=== PATIENT | female | born 1940 | race African-American/Black ===

== ENCOUNTER 2017-04-23 21:05 | Inpatient (IN) | payer MEDICARE ==
[2017-04-23] MEDS ORDERED: Rocuronium Bromide 50 MG/5 ML VIAL ONE (21:07)
[2017-04-23 21:26] LABS: Actual Bicarbonate (HCO3a) 19.6 mEq/L (22-26); Base Excess (BEa) -4.1 mEq/L (0 (+/-) 2.5); CO2 Tension 31.9 mmHg (35.0-45.0); pH, Arterial 7.41 (7.35-7.45)
[2017-04-23 21:27] LABS: ALV-art Gradient 95.685 (0-20); Analyzer IN Cardio ER; Calcium, Ionized 1.1 mmol/L (1.12-1.30); Hematocrit-ABG 41.9 % (36.0-47.0); Hemoglobin (Hb) 12.9 g/dL (12.0-16.0); Puncture Site RRA
[2017-04-23 22:04] LABS: Base Excess-Venous -4.3 mmol/L (-30.0-30.0); Bicarbonate (HCO3v) 19.6 mmol/L (1.0-85.0); CO2 Tension (PvCO2) 32.2 mmHg (41.0-51.0); Calcium, Ionized 0.92 mmol/L (1.12-1.32); O2 Tension (PvO2) 33.5 mmHg (35.0-45.0); Potassium 3.5 mmol/L (3.4-4.7); T. Carbon Dioxide 20.6 mmol/L (1.0-85.0); pH (Venous) 7.393 (7.35-7.45)
[2017-04-23 22:18] LABS: Hemoglobin 13.2 g/dL (12.0-16.0); Mean Corpuscular Hemoglobin 32.7 pg (27.0-31.0); Mean Corpuscular Volume 99.1 fl (81.0-99.0); Red Blood Cell (RBC) Count 4.05 mill/uL (4.20-5.40)
[2017-04-23 22:30] LABS: #Basophils 0.1 thou/uL (0.0-0.2); #Eosinphils 0.1 thou/uL (0.0-0.7); #Lymphocytes 3.4 thou/uL (1.20-3.40); #Monocytes 0.4 thou/uL (0.11-0.59); #Neutrophils 3.1 thou/uL (1.40-6.50); %Basophils 1.4 % (0.0-1.0); %Eosinophils 1.1 % (0.0-10.0); %Lymphocytes 48.9 % (21.0-51.0); %Monocytes 5.2 % (0.0-10.0); %Neutrophils 43.5 % (42.0-75.0); Mean Platelet Volume 8.4 fL (7.4-10.4); PLT Morphology Comment Appears Decreased; Platelet Count 94 thou/uL (130-400)
[2017-04-23 22:39] LABS: ALT (SGPT) 13 U/L (8-55); AST (SGOT) 28 U/L (5-34); Albumin 3.4 g/dL (3.4-4.8); Alkaline Phosphatase 38 U/L (40-150); Anion Gap 12 mmol/L (10-20); BUN (Urea Nitrogen) 20 mg/dL (9.8-20.1); Calc. Creatinine Clearance 0 mL/min (70-130); Carbon Dioxide 20 mmol/L (23-31); Chloride 106 mmol/L (98-107); Estimated GFR-MDRD 31; Globulin 2.7 g/dL (2.4-3.5); Glucose 74 mg/dL (83-110); Potassium 3.5 mmol/L (3.5-5.1); Protein, Total 6.1 g/dL (6.0-8.3); Sodium 134 mmol/L (136-145)
[2017-04-23 22:40] LABS: Base Excess-Venous -3.5 mmol/L (-30.0-30.0); Bicarbonate (HCO3v) 22.8 mmol/L (1.0-85.0); CO2 Tension (PvCO2) 45.1 mmHg (41.0-51.0); Calcium, Ionized 1.02 mmol/L (1.12-1.32); O2 Tension (PvO2) 22.8 mmHg (35.0-45.0); Potassium 3.5 mmol/L (3.4-4.7); T. Carbon Dioxide 24.2 mmol/L (1.0-85.0); pH (Venous) 7.313 (7.35-7.45); vO2 Saturation-calc 34.3 % (0.0-100.0)
--- NOTE | 2017-04-23 22:42 | RAD ---
PORTABLE SEMI UPRIGHT CHEST ONE VIEW: History: 65-year-old female with respiratory distress and shortness of breath. FINDINGS: Post underlying sternotomy and aortic endostent. Minimal cardiomegaly. There is bilateral vascular co ngestion and some scattered interstitial and alveolar opacities certainly raising concern for some co ngestive heart failure. Blunting of the left costophrenic angle probably representing some effusion. IMPRESSION: Minimal cardiomegaly with bilateral vascular congestion and some scattered diffuse interstitial and a lveolar opacity changes concerning for some pulmonary edema and possible congestive heart failure wit h small left pleural effusion. No old studies. Continued short term follow up for clearing or stabili ty. POS: RICARDO
[2017-04-23] MEDS ORDERED: Enoxaparin Sodium 100 MG/ML SYRINGE ONE (23:16)
--- NOTE | 2017-04-23 23:45 | PDOC.EVN ---
Event Note - Event Note Event Note: [id number] h&p dICTATED 1. Altered mental status 2. Acute respiratory failure 3. Hypotension 4. IMANI 5. Elevated d dimer plan: see orders
[2017-04-23 23:58] LABS: CKMB 1.2 ng/mL (0-6.6)
[2017-04-24 00:05] LABS: Troponin I 0.442 ng/mL (< 0.028)
[2017-04-24] MEDS ORDERED: Acetaminophen 325 MG TAB PO PRN (01:05)
[2017-04-24] MEDS ORDERED: Ondansetron ODT 4 MG TAB SL PRN (01:05)
[2017-04-24] MEDS ORDERED: Ondansetron HCl/PF 4 MG/2 ML Vial IVP PRN (01:05)
[2017-04-24] MEDS ORDERED: Lactated Ringer's 1,000 ML IV SCH (01:15)
[2017-04-24] MEDS: Piperacillin/Tazobactam 3.375 GM in Sodium Chloride 0.9% 100 ML IVPB SCH ×4 (02:09→19:55)
[2017-04-24] MEDS: Sodium Chloride 0.9% 1,000 ML IV SCH ×3 (02:09→22:37)
[2017-04-24 02:32] LABS: Troponin I 1.105 ng/mL (< 0.028)
[2017-04-24 03:28] VITALS: BMI 31.6
[2017-04-24 03:37] LABS: Bilirubin Small (Negative); Blood, Urine Negative (Negative); Clarity CLOUDY (Clear); Glucose, Urine (Dipstick) Negative (Negative); Leukocyte Negative (Negative); Nitrite Negative (Negative); Protein, Urine (Dipstick) 30 mg/dL (Neg-Trace); Specific Gravity, Urine 1.025 (1.002-1.036); Urobilinogen 0.2 mg/dL (0.2-1.0)
[2017-04-24 03:40] LABS: Pathc Cast-AUWi Flag 2.16 (0-2.49)
[2017-04-24 03:58] LABS: RBC/HPF 0-3 HPF (0-3)
[2017-04-24 03:59] LABS: Bacteria/HPF 1+ HPF (None Seen); Hyaline Casts/LPF 7-10 HYALINE CAST LPF (0-3 Hyaline); WBC/HPF 0-3 HPF (0-3)
[2017-04-24 05:29] LABS: Critical Call Chem Troponin I RESULT DECREASING; Troponin I 0.753 ng/mL (< 0.028)
--- NOTE | 2017-04-24 06:38 | HP ---
DATE OF ADMISSION: 04/23/2017 CHIEF COMPLAINT: Dyspnea. HISTORY OF PRESENT ILLNESS: Patient is a 76-year-old female with a past medical history of hypertens ion, now brought to the ER because of dyspnea, history obtained from the ED nurse and then the patien t and from the ED physician. Patient is currently lethargic, according to the ED nurse, history obta ined from the patient's niece. Patient went to a trip in [place] and over the last 2 days she was havi ng dyspnea. Dyspnea got worse after she got back yesterday, then the patient was found to have confu yovani also. Today, patient was more confused and was having more dyspneic, so EMS was called. Upon E [facility] arrival, patient was found to have possible respiratory arrest, could not able to feel the pulse, so patient was placed on the nonrebreather and patient was given epinephrine. Following epinephrine was given patient was then went into V-tach and patient recovered from V-tachycardia spontaneously, s o patient was brought to the ER. In the ER, patient was initially hypotensive. Patient was given 1- 1/2 liter fluid bolus and placed on oxygen. Respiratory status improved and oxygen sats improved, bl ood pressure improved. So, I was called for the admission. Patient denies any chest pain, denies an y palpation, does not know what happened. PAST MEDICAL HISTORY: Hypertension. PAST SURGICAL HISTORY: Hysterectomy. SOCIAL HISTORY: Denies smoking, denies alcohol, denies any drugs. FAMILY HISTORY: Patient denies any medical problems. Denies any heart problems. REVIEW OF SYSTEMS: Patient is lethargic, so not able to get all the review of systems. Denies any c hest pain. Denies any palpitations. Denies nausea, denies any vomiting. Complains of dyspnea. Com [place] of cough. PHYSICAL EXAMINATION: CONSTITUTIONAL/VITAL SIGNS: At the time of H&P performed, blood pressure is 92/70, heart rate 105, r espiratory rate 18. GENERAL: Patient appears tired. Anterior nares patent. HEENT: Nose normal. Positive for oxygen nasal cannula. NECK: Supple. No JVD. CARDIOVASCULAR SYSTEM: S1, S2 present, tachycardic. No murmurs, no rubs, no gallops. RESPIRATORY SYSTEM: Diminished breath sounds present bilaterally. Positive crackles. No accessory muscle seen. GASTROINTESTINAL: Abdomen is soft, nontender, no guarding, no organomegaly, no masses felt. MUSCULOSKELETAL: No edema. CRANIAL NERVE SYSTEM: Lethargic, but arousable. Oriented to place. Follows some commands. Speech clear. PSYCHIATRIC: Mood calm at this time. INTEGUMENT: No rashes seen. LABORATORY DATA: At the time of H&P performed, blood count 7, hemoglobin 13.2, platelet count is 94. D-dimer 1.97. ABG showed pH of 7.41, pCO2 of 32, pO2 of 91, bicarbonate 19.6. BMP showed sodium 1 34, potassium 3.5, chloride 106, CO2 of 20, BUN of 20, creatinine 1.91. ASSESSMENT AND PLAN: Patient is 76-year-old female: 1. Altered mental status, etiology unclear. Plan to check a CT head and ammonia level. Plan to peter ck urinalysis also and urine culture and sensitivity and we will follow the patient. 2. Acute respiratory failure. Respiratory status, improved. Continue oxygen nasal cannula at this time. Monitor Accu-Cheks closely. We will admit the patient to the ICU for close monitoring. 3. Hypotension, etiology unclear. Plan to broad spectrum antibiotics. Plan to blood cultures and p dasha to check 2D echo to evaluate LV function. Also, we will follow the patient. We will monitor blo od pressure if does not improve. We will start patient on vasopressors also. 4. Acute kidney injury versus chronic kidney injury, patient's creatinine unknown. Current creatini ne is elevated. Plan to gentle IV fluids, repeat BMP in a.m. If worsens, we will consult Nephrology . 5. Dyspnea plus elevated D-dimer. ED physician already ordered Lovenox. We will go ahead and give a dose of Lovenox. We will do a VQ scan also to rule out any PE. We will check bilateral lower extr emity ultrasound to rule out deep venous thrombosis. We will admit patient to the ICU for close yossi toring. Case was discussed in detail with the patient.
[2017-04-24 06:42] LABS: #Basophils 0.1 thou/uL (0.0-0.2); #Eosinphils 0.1 thou/uL (0.0-0.7); #Lymphocytes 3.2 thou/uL (1.20-3.40); #Monocytes 0.5 thou/uL (0.11-0.59); #Neutrophils 2.7 thou/uL (1.40-6.50); %Eosinophils 1.6 % (0.0-10.0); %Lymphocytes 48.8 % (21.0-51.0); %Monocytes 7.5 % (0.0-10.0); %Neutrophils 41.1 % (42.0-75.0); Hemoglobin 12.6 g/dL (12.0-16.0); Mean Corpuscular HGB CONC 31.9 g/dL (32.0-36.0); Mean Corpuscular Hemoglobin 31.8 pg (27.0-31.0); Mean Corpuscular Volume 99.8 fl (81.0-99.0); Mean Platelet Volume 9.1 fL (7.4-10.4); Platelet Count 87 thou/uL (130-400); RBC Distribution Width 13.3 % (11.5-14.5); Red Blood Cell (RBC) Count 3.98 mill/uL (4.20-5.40); White Blood Cell (WBC) Count 6.6 thou/uL (4.8-10.8)
[2017-04-24 06:49] LABS: Anion Gap 12 mmol/L (10-20); BUN (Urea Nitrogen) 19 mg/dL (9.8-20.1); Calc. Creatinine Clearance 50 mL/min (70-130); Calcium 7.9 mg/dL (7.8-10.44); Carbon Dioxide 18 mmol/L (23-31); Chloride 110 mmol/L (98-107); Estimated GFR-MDRD 40; Glucose 61 mg/dL (83-110); Potassium 3.5 mmol/L (3.5-5.1); Sodium 136 mmol/L (136-145)
--- NOTE | 2017-04-24 07:03 | ULT ---
BILATERAL LOWER EXTREMITY VENOUS DUPLEX ULTRASOUND INCLUDING COLOR AND SPECTRAL DOPPLER IMAGING: Date: 04/23/17 HISTORY: 76-year-old female with dyspnea, hypotension, and bilateral lower extremity pain. TECHNIQUE: Exam performed from groin to ankle including visualized greater saphenous, common femoral, superficia l femoral, profunda femoral, popliteal, trifurcation, and posterior tibial vein regions. FINDINGS: Phasic flow noted at all levels with normal compressibility and normal augmentation. No intraluminal thrombus. IMPRESSION: No evidence for deep venous thrombosis. POS: FLASH
--- NOTE | 2017-04-24 08:34 | CON ---
DATE OF CONSULTATION: 04/24/2017 HISTORY OF PRESENT ILLNESS: Kelley Mathews is a 76-year-old encephalopathic female, unable to give any information, but apparently she lives in [place] and apparently with confusion. Apparently she has some kind of ventricular arrhythmia and V-tach. There are no family members here to get any additional information, but she denies at this time any c ough, chest pain or wheezing, orthopnea or PND. A ventilation perfusion lung scan has been ordered. Ultrasound of the legs shows there is no evidence of any DVT. PAST MEDICAL HISTORY: Obtained includes hypertension, multiple cardiac stents, previous craniotomy, brain tumor, atrial fibrillation. History is provided by the niece. PAST SURGICAL HISTORY: Hysterectomy. SOCIAL HISTORY: The patient has smoked in the past. No history of alcohol or drug abuse. MEDICATIONS: A list of medicine from home include hydrocortisone 10 at night time, 20 in the morning , Coumadin 10 mg a day, Norvasc 5, Cozaar 25, Synthroid 75. ALLERGIES: None. SOCIAL/FAMILY HISTORY: Difficult to obtain. REVIEW OF SYSTEMS: Otherwise, difficult, but otherwise unremarkable 10 point. PHYSICAL EXAMINATION: GENERAL: Sats are 100% on 2 liters. Pulse 83, blood pressure 106/73. NEURO: Neurologically, she moves all 4 extremities, does answer questions, but clearly encephalopath ic. CHEST: No wheezing or crackles. CARDIAC: Normal S1, S2. ABDOMEN: Soft, no masses. LABORATORY: White count 6000, H&H 12 and 39, platelet count is low at 87. Creatinine is 1.5. Troponin was elevated. Urine is unremarkable. X-ray shows a left-sided infiltrate. Cardiomegaly. CT brain was otherwise unremarkable. Influenza titer was obtained on admission which was negative. IMPRESSION: 1. Metabolic encephalopathy. 2. Renal failure. 3. Coronary artery disease. 4. Left-sided pneumonia. PLAN: Continue Zosyn. She has apparently been on Coumadin at home. We will try and get additional information when family arrives. This is a 45 minute critical care time spent with the patient at the bedside.
[2017-04-24 08:45] LABS: INR-International Normal Ratio 1.9; Prothrombin Time 22.7 SEC (12.0-14.7)
[2017-04-24] MEDS ORDERED: FLU VACC TS2017-18 (>65YR) 0.5 ML SYRINGE IM ONE (09:00)
[2017-04-24] MEDS ORDERED: Enoxaparin Sodium 100 MG/ML SYRINGE SC SCH (09:00)
--- NOTE | 2017-04-24 09:00 | PDOC.PN ---
- Subjective Encounter Start Date: 04/24/17 Encounter Start Time: 08:58 Subjective: confused, BP now 77/58 - Objective MAR Reviewed: Yes Vital Signs & Weight: Vital Signs (12 hours) Temp Pulse Resp Pulse Ox 04/24/17 08:00 98.5 F 04/24/17 01:00 99.4 F 04/24/17 00:50 99.4 F 103 H 17 97 Weight Weight 220 lb 3.869 oz Most Recent Monitor Data Heart Rate from ECG 84 NIBP 77/58 NIBP BP-Mean 63 Respiration from ECG 21 SpO2 99 I&O: 04/23/17 04/24/17 04/25/17 06:59 06:59 06:59 Intake Total 475 Output Total 300 Balance 175 Result Diagrams: 04/24/17 04:22 04/24/17 04:22 Radiology Reviewed by me: Yes (CT brain- no acute IC process) Phys Exam - Physical Examination Neck: no JVD Respiratory: clear to auscultation bilateral Cardiovascular: RRR, no significant murmur Gastrointestinal: soft, non-tender, positive bowel sounds Musculoskeletal: edema present Dx/Plan (1) PNA (pneumonia) Code(s): J18.9 - PNEUMONIA, UNSPECIFIED ORGANISM Status: Acute Qualifiers: Pneumonia type: due to unspecified organism Laterality: left Lung location: lower lobe of lung Qualified Code(s): J18.1 - Lobar pneumonia, unspecified organism (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
[2017-04-24] MEDS ORDERED: Sodium Chloride 0.9% 1,000 ML IV SCH (09:15)
[2017-04-24] MEDS: Aspirin 325 MG TAB PO SCH (09:35)
--- NOTE | 2017-04-24 10:13 | CT ---
PRELIMINARY REPORT/[facility]/EMERGENCY AFTER HOURS PROCEDURE: EXAM: CT Head Without Intravenous Contrast EXAM DATE/TIME: 04/24/2017 12:37 AM CLINICAL HISTORY: 76 years old, female; Signs and symptoms; Altered mental status/memory loss; Confusion or disorientat ion; Patient HX: AMS TECHNIQUE: Axial computed tomography images of the head/brain without intravenous contrast. COMPARISON: No relevant prior studies available. FINDINGS: Brain: Decreased attenuation of the supratentorial white matter is likely secondary to chronic microv ascular ischemia. No hemorrhage. Ventricles: Ventricular and subarachnoid spaces are age appropriate. Bones/joints: Calvarial postoperative change. No acute fracture. Soft tissues: Unremarkable. Vasculature: Intracranial vascular calcification. Sinuses: Sporadic paranasal sinus disease. Mastoid air cells: Unremarkable as visualized. No mastoid effusion. IMPRESSION: No acute intracranial abnormality. Thank you for allowing us to participate in the care of your patient. Dictated and Authenticated by: Robin Rock MD 04/24/2017 12:53 AM Central Time ([place] & [place]) FINAL REPORT EMERGENCY AFTER HOURS CT BRAIN WITHOUT CONTRAST: Date: 04/23/17 FINDINGS/IMPRESSION: I agree with the findings and impression given in the preliminary report per [facility] physician. No evide nce of acute intracranial abnormality. POS: RICARDO
[2017-04-24] MEDS ORDERED: Hydrocortisone Sod Succ/PF 100 mg/2 ml Vial IVP SCH ×2 (10:45→12:00)
--- NOTE | 2017-04-24 14:10 | CON ---
DATE OF CONSULTATION: 04/24/2017 REASON FOR CONSULTATION: Hypotension, elevated troponin, and respiratory failure. HISTORY OF PRESENT ILLNESS: Ms. Mathews is a very pleasant 76-year-old woman with a previous history of aortic valve replacement who recently became short of breath and confused. The history is obtain ed from the chart. Patient does not recall the episode. The patient appeared to have gone respirato ry arrest and required epinephrine. She then developed ventricular tachycardia with hypotension. Af ter recurring from VT, she was then seen and evaluated in the emergency room. At this point, it is very difficult to pin down a history from Ms. Mathews. She states she overall j ust felt "sick." She has been hypotensive while in the ICU. PHYSICAL EXAMINATION: GENERAL: Patient is a pleasant female who is in no acute distress. The patient appears her stated a ge. VITAL SIGNS: 92/76, respirations 20, pulse 96. NEUROLOGIC: The patient is alert and oriented times 3 with no focal neurologic deficits. HEENT: Sclerae without icterus. Mouth has moist mucous membranes with normal pallor. NECK: No JVD. Carotid upstroke brisk. No bruits bilaterally. LUNGS: Clear to auscultation with unlabored respirations. BACK: No scoliosis or kyphosis. CARDIAC: Regular rate and rhythm with normal S1 and S2. No S3 or S4 noted. No significant rubs, mu rmurs, thrills, or gallops noted throughout the precordium. PMI is not displaced. There is no pastor ternal heave. ABDOMEN: Soft, nontender, nondistended. No peritoneal signs present. No hepatosplenomegaly. No ab normal striae. EXTREMITIES: 2+ femoral and 2+ dorsalis pedis pulses. No cyanosis, clubbing, or edema. SKIN: No gross abnormalities. PERTINENT LABORATORY DATA: Hemoglobin 12.6, INR 1.9, peak troponin 1.105, and creatinine 1.54. BNP of 198. D-dimer 1.97. IMPRESSION: 1. Venogram negative for deep venous thrombosis. 2. Pneumonia. RECOMMENDATIONS: From a CV standpoint, Ms. Mathews' current situation may be due to a recent pneumon ia given mental status changes in addition to low grade fever while at home. Will review her old rec ords. At this point, she may need angiography either inpatient versus outpatient elevation, although may be also related to demand ischemia. I would continue antibiotic therapy and fluids. Recommend echo with Doppler to assess LV function. I did discuss angiography and revealed full details to Ms. Lyons. The risks included but not limited to the following: , stroke, [place], need for emergency surgery, loss of limb, bleeding, and infection, as well as a reaction to the dye causing kidney failu re and needing long-term dialysis. Other risks include acute stent thrombosis and restenosis, vessel dissection, perforation, need for emergency surgery in addition to distal embolization causing chroni c foot discomfort as well as amputation. The risks of the procedure include but are not limited to t he risks of PCI. All questions were answered. At this point, we will assess her creatinine in a.m. for further recommendations.
[2017-04-24] MEDS ORDERED: Chloraseptic Spray 180 ml Bottle PO PRN (16:00)
[2017-04-24] MEDS: Warfarin Sodium 5 MG TAB PO SCH (17:35)
[2017-04-24] MEDS: Hydrocortisone Sod Succ/PF 100 mg/2 ml Vial IVP SCH ×2 (18:21→23:37)
[2017-04-25] MEDS: Lorazepam 2 MG/ML VIAL SLOW IVP SCH ×2 (02:44→06:42)
[2017-04-25] MEDS: Piperacillin/Tazobactam 3.375 GM in Sodium Chloride 0.9% 100 ML IVPB SCH ×2 (02:45→06:41)
[2017-04-25] MEDS: Hydrocortisone Sod Succ/PF 100 mg/2 ml Vial IVP SCH (06:40)
[2017-04-25] MEDS: Sodium Chloride 0.9% 1,000 ML IV SCH ×2 (06:40→16:39)
--- NOTE | 2017-04-25 08:03 | PDOC.PN ---
- Subjective Encounter Start Date: 04/25/17 Encounter Start Time: 08:01 Subjective: alert, cranky - Objective MAR Reviewed: Yes Vital Signs & Weight: Vital Signs (12 hours) Temp 04/25/17 07:00 97.6 F 04/25/17 04:00 98.0 F 04/25/17 00:00 98.7 F Weight Weight 3.563 oz Most Recent Monitor Data Heart Rate from ECG 82 NIBP 122/101 NIBP BP-Mean 114 Respiration from ECG 21 SpO2 100 I&O: 04/24/17 04/25/17 04/26/17 06:59 06:59 06:59 Intake Total 475 3878 Output Total 300 2770 0 Balance 175 1108 0 Result Diagrams: 04/24/17 04:22 04/25/17 07:50 Radiology Reviewed by me: Yes (cxr- PVC, mild) Phys Exam - Physical Examination Constitutional: NAD Neck: no JVD post rales, OW clear Cardiovascular: RRR, no significant murmur Gastrointestinal: soft, positive bowel sounds Musculoskeletal: edema present Dx/Plan (1) PNA (pneumonia) Code(s): J18.9 - PNEUMONIA, UNSPECIFIED ORGANISM Status: Acute Qualifiers: Pneumonia type: due to unspecified organism Laterality: left Lung location: lower lobe of lung Qualified Code(s): J18.1 - Lobar pneumonia, unspecified organism (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 transplanted heart: [place] heart Associated angina: without angina Qualified Code(s): I25.10 - Atherosclerotic heart disease of [place] coronary artery without angina pectoris (5) Atrial fibrillation with controlled ventricular rate Code(s): I48.91 - UNSPECIFIED ATRIAL FIBRILLATION Status: Chronic (6) NSTEMI (non-ST elevated myocardial infarction) Code(s): I21.4 - NON-ST ELEVATION (NSTEMI) MYOCARDIAL INFARCTION Status: Acute (7) Acute renal failure Status: Resolved Qualifiers: Acute renal failure type: unspecified Qualified Code(s): N17.9 - Acute kidney failure, unspecified - Plan lab , cxr pending -: renal fcn improved. no definite infiltrate on cxr- deescalate antibx tomorr -: cont asa, start statin * .
[2017-04-25 08:08] LABS: INR-International Normal Ratio 2.2; Prothrombin Time 25.1 SEC (12.0-14.7)
[2017-04-25 08:22] LABS: Anion Gap 12 mmol/L (10-20); BUN (Urea Nitrogen) 13 mg/dL (9.8-20.1); Calc. Creatinine Clearance 0 mL/min (70-130); Calcium 8.8 mg/dL (7.8-10.44); Carbon Dioxide 23 mmol/L (23-31); Chloride 109 mmol/L (98-107); Estimated GFR-MDRD 62; Glucose 109 mg/dL (83-110); Potassium 4.3 mmol/L (3.5-5.1); Sodium 140 mmol/L (136-145)
--- NOTE | 2017-04-25 08:33 | RAD ---
CHEST ONE VIEW: History: Pneumonia. Follow up. Comparison: 04-23-17 FINDINGS: Cardiac silhouette remains magnified and enlarged. Pulmonary vasculature remains engorged. Mediastinu m is midline with post-operative changes and aortic stent. No lobar consolidation or pneumothorax are apparent. pastry assistant leads overlie the chest. IMPRESSION: Stable radiographic appearance of the chest with cardiomegaly and mild pulmonary vascular congestion. POS: RICARDO
--- NOTE | 2017-04-25 08:48 | PRG ---
DATE OF SERVICE: 04/25/2017 HISTORY: Ms. Mathews from a clinical standpoint appears improved. Her blood pressure has stabilized . No chest pain or pressure noted. PHYSICAL EXAMINATION: VITAL SIGNS: Blood pressure 141/108, pulse 80, temperature 97.6. LUNGS: Lungs are clear to auscultation. HEART: Regular rate and rhythm. ABDOMEN: Soft, nontender, nondistended. EXTREMITIES: No edema. IMPRESSION: 1. Elevated troponin. 2. ? Pneumonia. 3. Hypotension, now resolved. 4. Thoracic aneurysm repair, status post aortic valve replacement. RECOMMENDATIONS: I discussed the case with Dr. Eliane Carrero. I did discuss proceeding with angiogr aphy if not felt to be secondary to pneumonia. There is a questionable pneumonia on antibiotic thera py. I again discussed this with Ms. Mathews. She is adamant about not proceeding with any invasive means or measures. She would like to proceed with medical therapy. She has been very upset about th e care she has received while in the ICU. I discussed this with the charge nurse. She would like to be discharged as soon as medically cleared and would like to receive her further care with her [facility] olog[facility] in [place] as an outpatient. At this point, I would recommend continued medical therapy. Wi ll decrease aspirin to 81 q.a.m. Will continue Coumadin to an INR of 2-3 given her previous history of atrial fibrillation. She is also on Zosyn. I would also recommend low dose statin therapy. Othe rwise I have no further recommendations.
[2017-04-25] MEDS: Hydrocortisone 10 mg Tablet PO SCH (09:15)
--- NOTE | 2017-04-25 09:24 | PRG ---
DATE OF SERVICE: 04/25/2017 This morning she is awake, alert, responsive, no longer hypertension. PHYSICAL EXAMINATION: VITAL SIGNS: Sats 100%, blood pressure 140/100, respirations 18. She is afebrile. CHEST: No crackles, rubs or wheezing. CARDIAC: Normal S1, S2. ABDOMEN: Soft, no masses. X-ray shows slightly increased cephalization. Kidney function normal. INR is 2.2. IMPRESSION: 1. Hypertension, resolved. 2. Possibly pneumonia. 3. Chronic atrial fibrillation on long-term anticoagulation. PLAN: She can be transferred out of the ICU to a monitored bed. Pulmonary will follow.
[2017-04-25] MEDS ORDERED: Levothyroxine Sodium 75 MCG TAB PO SCH (09:45)
[2017-04-25] MEDS: Aspirin 325 MG TAB PO SCH (09:46)
[2017-04-25] MEDS: Amoxicillin/Potassium Clav 500 MG TAB PO SCH ×2 (09:54→20:32)
[2017-04-25] MEDS: Warfarin Sodium 5 MG TAB PO SCH (16:39)
[2017-04-25] MEDS ORDERED: Hydrocortisone 10 mg Tablet PO SCH (21:00)
[2017-04-25] MEDS ORDERED: Atorvastatin Calcium 20 MG TAB PO SCH (21:00)
[2017-04-26 05:18] LABS: INR-International Normal Ratio 2.8; Prothrombin Time 30.4 SEC (12.0-14.7)
[2017-04-26 05:22] LABS: Anion Gap 10 mmol/L (10-20); BUN (Urea Nitrogen) 11 mg/dL (9.8-20.1); Calc. Creatinine Clearance 81 mL/min (70-130); Carbon Dioxide 24 mmol/L (23-31); Chloride 110 mmol/L (98-107); Estimated GFR-MDRD 68; Glucose 109 mg/dL (83-110); Potassium 4.1 mmol/L (3.5-5.1); Sodium 140 mmol/L (136-145)
[2017-04-26] MEDS ORDERED: Levothyroxine Sodium 75 MCG TAB PO SCH (06:00)
--- NOTE | 2017-04-26 08:58 | PDOC.PN ---
- Subjective Encounter Start Date: 04/26/17 Encounter Start Time: 08:56 Subjective: some sob, edema - Objective MAR Reviewed: Yes Vital Signs & Weight: Vital Signs (12 hours) Temp Pulse Resp BP Pulse Ox 04/26/17 07:10 97.5 F L 75 18 145/106 H 98 04/26/17 04:02 97.6 F 82 16 128/92 H 96 Weight Weight 225 lb 3.2 oz Most Recent Monitor Data Heart Rate from ECG 98 NIBP 127/92 NIBP BP-Mean 101 Respiration from ECG 22 SpO2 99 I&O: 04/25/17 04/26/17 04/27/17 06:59 06:59 06:59 Intake Total 3878 3123 Output Total 2770 1200 Balance 1108 1923 Result Diagrams: 04/24/17 04:22 04/26/17 04:48 Phys Exam - Physical Examination Constitutional: NAD Neck: no JVD diffuse post rales Cardiovascular: irregular Gastrointestinal: soft, positive bowel sounds Musculoskeletal: edema present Dx/Plan (1) PNA (pneumonia) Code(s): J18.9 - PNEUMONIA, UNSPECIFIED ORGANISM Status: Acute Qualifiers: Pneumonia type: due to unspecified organism Laterality: left Lung location: lower lobe of lung Qualified Code(s): J18.1 - Lobar pneumonia, unspecified organism (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 transplanted heart: [place] heart Associated angina: without angina Qualified Code(s): I25.10 - Atherosclerotic heart disease of [place] coronary artery without angina pectoris (5) Atrial fibrillation with controlled ventricular rate Code(s): I48.91 - UNSPECIFIED ATRIAL FIBRILLATION Status: Chronic (6) NSTEMI (non-ST elevated myocardial infarction) Code(s): I21.4 - NON-ST ELEVATION (NSTEMI) MYOCARDIAL INFARCTION Status: Acute (7) Acute renal failure Status: Resolved Qualifiers: Acute renal failure type: unspecified Qualified Code(s): N17.9 - Acute kidney failure, unspecified - Plan iv diuresis. echo. cont anticoag. reinstitute amlodipine, losartan. -: cont replacement steroids * .
[2017-04-26] MEDS ORDERED: Amlodipine 5 MG TAB PO SCH (09:00)
[2017-04-26] MEDS ORDERED: Losartan 25 MG TAB PO SCH (09:00)
[2017-04-26] MEDS: Sodium Chloride 0.9% 1,000 ML IV SCH (09:35)
[2017-04-26] MEDS: Piperacillin/Tazobactam 3.375 GM in Sodium Chloride 0.9% 100 ML IVPB SCH (09:37)
[2017-04-26] MEDS: Hydrocortisone 10 mg Tablet PO SCH (09:39)
[2017-04-26] MEDS: Amoxicillin/Potassium Clav 500 MG TAB PO SCH (09:39)
[2017-04-26 12:41] VITALS: BP 110/78; TEMP 97.7
--- NOTE | 2017-04-26 12:53 | PRG ---
DATE OF SERVICE: 04/26/2017 SUBJECTIVE: Kelley Mathews this morning, she is awake, alert, responsive, in no distress. OBJECTIVE: VITAL SIGNS: Blood pressure is 141/60, temperature 97, O2 sat 98%, respirations 18. I's and O's hav e been good. CHEST: Revealed decreased breath sounds without any wheezing. CARDIAC: Normal S1, S2. ABDOMEN: Soft, no masses. LABORATORY DATA: INR is 2.8. Rest of the labs normal. IMPRESSION: 1. Status post hypertension. 2. Respiratory failure, much improved. 3. Encephalopathy, much improved. From a pulmonary standpoint of view, she will be discharged home anytime. She will keep a close watch in her Coumadin and INR levels. Pulmonary will follow at a distance. Please call if needed.
[2017-04-26] MEDS ORDERED: Furosemide 40 MG/4 ML VIAL SLOW IVP SCH (14:00)
--- NOTE | 2017-04-26 14:28 | PRG ---
DATE OF SERVICE: 04/26/2017 SUBJECTIVE: Ms. Mathews is doing better. Her mentation has improved. No current complaints. No ch est pain or pressure noted. PHYSICAL EXAMINATION: VITAL SIGNS: Blood pressure 110/78, pulse 93, temperature 97.7. LUNGS: Clear to auscultation. CARDIAC: Irregularly irregular. ABDOMEN: Soft, nontender, nondistended. EXTREMITIES: No edema. IMPRESSION: 1. Shortness of breath. 2. Hypotension. 3. ? pneumonia. RECOMMENDATIONS: Ms. Mathews states she spoke with a drafting teacher in [place] yesterday. She had que stions about why I recommend angiography. I once again discussed the reasoning behind angiography gi martinez his troponin of 1. This is likely demand ischemia, but could not completely exclude an unstable plaque and unstable event. At this point, the patient states she is not ready to proceed. She would prefer following up with a drafting teacher for further recommendations in [place]. At this point, I wo uld recommend continuing Coumadin in addition to aspirin, beta wilson therapy, and statin therapy. Otherwise, from my standpoint, I have no further recommendations. Okay to discharge from my standpoi nt.
--- NOTE | 2017-04-26 15:43 | DIS ---
PRIMARY CARE PROVIDER: Unknown. POWER TRANSFORMER INSPECTOR: In [place]. FINAL DIAGNOSES: Encephalopathy; hypotension; acute respiratory failure; acute kidney injury; atrial fibrillation, chronic anticoagulation; coronary artery disease, post stents; history of brain tumor; non-ST elevation myocardial infarction. HOSPITAL COURSE: Patient was admitted, put in the Intensive Care Unit, seen by Dr. Pk Childers in the Intensive Care Unit. The patient was suspected to have a pneumonia. Cultures were done, which have come back negative. Initial laboratory: White count 7.0, hemoglobin 13.2, platelet count 94,000. [place] white count 6.2, hemoglobin 12.6, platelet count 87,000. INR is 2.8. Initial blood gas: pH 7.4, CO2 of 32, O2 of 91 on 32% O2. Initial Chemistries: Sodium 134, creatinine 1.911, BUN 90, pot assium 3.5, troponin 0.442. Followup creatinine came down; creatinine 0.97, sodium 140, and potassiu m 4.1. Troponins were 0.44, 1.1, 0.7. Chest x-ray: Cardiomegaly, postop changes, chronic changes. No confluent infiltrate. Evidence of pulmonary vascular congestion. She was seen in consultation b y Dr. Loy Avendaño, who recommended cardiac catheterization. The patient has refused. The isaias ent has been uncooperative during her whole hospital stay, calling the family up to come get her at [facility] twice a day, and today she has done the same thing. She is alert, oriented, and says she wants to leave [facility]. Dr. Childers has signed off, will follow from a distance. Dr. Avendaño recommends that s he have angiography. At this point, she wishes to leave and go see her doctor in [place]. She is be ing discharged against medical advice. She is, however, being sent home on her routine medicines plu s a prescription for Augmentin 500 twice a day for 7 more days. She declines any other therapy other than what she was on prior to admission. Current vital signs: Blood pressure 110/78, O2 sat 94, pu lse 93, respirations 16, temperature 97.7. Hopefully, she will follow up rapidly with her cardiologi st in [place] and follow up with [facility] in 3 days as has been requested. Her prognosis has to be guarded, as she has declined urged intervention with relation to her non-ST elevation [place], etc. DISCHARGE MEDICATIONS: Hydrocortisone 10 mg at bedtime and 20 mg a.m., Coumadin 10 mg daily at 1700 hours, amlodipine 5 mg a day, losartan 25 mg a day, levothyroxine 75 mcg a day, Lipitor 20 mg a day, aspirin 81 mg a day, rika xicillin/clavulanic acid 500 mg p.o. b.i.d. No known drug allergies. CODE STATUS: FULL.
--- NOTE | 2017-05-18 14:08 | EKG ---
Test Reason : Blood Pressure : / mmHG Vent. Rate : 132 BPM Atrial Rate : 131 BPM P-R Int : 000 ms QRS Dur : 090 ms QT Int : 302 ms P-R-T Axes : 000 099 188 degrees QTc Int : 447 ms Atrial fibrillation with rapid ventricular response Rightward axis Low voltage QRS T wave abnormality, consider anterior ischemia or digitalis effect Abnormal ECG Confirmed by OFELIA SAHU, JUSTA ([id number]), market editor SHAIRFA CARLOS ([id number] on 05/18/2017 2:07:34 PM Referred By: Confirmed By:JUSTA GILBERT MD
== END 2017-04-26 15:49 | disposition left against medical advice (07) | DRG 189 ==
LOC: EDBD 21:05 → ERS 21:05 → CCU 23:02 → 2NO 04-25 10:53
PROVIDERS: ADMIT Internal Medicine; ATTEND Internal Medicine
DX: J96.00 Acute respiratory failure, unspecified whether with hypoxia or hypercapnia (principal); I21.4 Non-ST elevation (NSTEMI) myocardial infarction; G93.41 Metabolic encephalopathy; N17.9 Acute kidney failure, unspecified; J18.9 Pneumonia, unspecified organism; I95.9 Hypotension, unspecified; I48.2 Chronic atrial fibrillation; E23.0 Hypopituitarism; I10 Essential (primary) hypertension; Z79.01 Long term (current) use of anticoagulants; Z95.2 Presence of prosthetic heart valve; I25.10 Atherosclerotic heart disease of native coronary artery without angina pectoris; Z95.5 Presence of coronary angioplasty implant and graft; Z86.69 Personal history of other diseases of the nervous system and sense organs
CPT/HCPCS: 36415; 70450; 71010; 80048; 80053; 81003; 81015; 82140; 82330; 82553; 82803; 82805; 83605; 83880; 84484; 85025; 85379; 85610; 87040; 87086; 87804; 93005; 93970; 96360; 96372; 99292; J1650; J1720; J1940; J1956; J2060; J2543; J7050

== ENCOUNTER 2017-04-29 11:16 | Emergency (ER) | payer MEDICARE ==
[2017-04-29 11:46] LABS: #Basophils 0.1 thou/uL (0.0-0.2); #Eosinphils 0.3 thou/uL (0.0-0.7); #Lymphocytes 3.5 thou/uL (1.20-3.40); #Monocytes 0.6 thou/uL (0.11-0.59); #Neutrophils 2.8 thou/uL (1.40-6.50); %Basophils 1.3 % (0.0-1.0); %Eosinophils 3.5 % (0.0-10.0); %Lymphocytes 48.2 % (21.0-51.0); %Monocytes 8.7 % (0.0-10.0); %Neutrophils 38.4 % (42.0-75.0); Mean Corpuscular HGB CONC 31.9 g/dL (32.0-36.0); Mean Corpuscular Hemoglobin 31.8 pg (27.0-31.0); Mean Corpuscular Volume 99.9 fl (81.0-99.0); Mean Platelet Volume 8.7 fL (7.4-10.4); Platelet Count 169 thou/uL (130-400); RBC Distribution Width 13.3 % (11.5-14.5); Red Blood Cell (RBC) Count 3.46 mill/uL (4.20-5.40); White Blood Cell (WBC) Count 7.3 thou/uL (4.8-10.8)
[2017-04-29 11:52] LABS: INR-International Normal Ratio 3.6; PTT 66.2 SEC (22.9-36.1); Prothrombin Time 37.6 SEC (12.0-14.7)
--- NOTE | 2017-04-29 12:07 | RAD ---
PORTABLE CHEST 1 VIEW: DATE: . TIME: 11:50 a.m. HISTORY: Weakness and sepsis. FINDINGS/IMPRESSION: Comparison is made with the exam of 04/25/17. There are changes of median sternotomy. The heart size is enlarged. Aortic stent remains in place. No lobar consolidation, pneumothoraces, daljit pulmonary edema, or large effusions are seen. There i s mild pulmonary vascular congestion. POS: [facility] [place]
[2017-04-29 12:12] LABS: Troponin I 0.038 ng/mL (< 0.028)
[2017-04-29 13:02] LABS: Bilirubin Negative (Negative); Blood, Urine Negative (Negative); Clarity Clear (Clear); Glucose, Urine (Dipstick) Negative (Negative); Leukocyte Negative (Negative); Nitrite Negative (Negative); Protein, Urine (Dipstick) Negative (Neg-Trace); Specific Gravity, Urine 1.006 (1.002-1.036); Urobilinogen 0.2 mg/dL (0.2-1.0)
== END 2017-04-29 13:45 | disposition home or self-care (01) ==
LOC: ERS 11:16
DX: I11.0 Hypertensive heart disease with heart failure (principal); I50.9 Heart failure, unspecified; Z87.891 Personal history of nicotine dependence; Z79.899 Other long term (current) drug therapy; Z79.01 Long term (current) use of anticoagulants
CPT/HCPCS: 71010; 81003; 82553; 83605; 83880; 84484; 85025; 85610; 85730; 93005

== ENCOUNTER 2017-07-11 09:43 | Emergency (ER) | payer MEDICARE ==
[2017-07-11 10:41] LABS: #Eosinphils 0.2 thou/uL (0.0-0.7); #Lymphocytes 3.7 thou/uL (1.20-3.40); #Monocytes 0.7 thou/uL (0.11-0.59); #Neutrophils 4.2 thou/uL (1.40-6.50); %Basophils 0.3 % (0.0-1.0); %Eosinophils 2.7 % (0.0-10.0); %Lymphocytes 42.3 % (21.0-51.0); %Monocytes 7.6 % (0.0-10.0); %Neutrophils 47.1 % (42.0-75.0); Hemoglobin 12.2 g/dL (12.0-16.0); Mean Corpuscular HGB CONC 31.5 g/dL (32.0-36.0); Mean Corpuscular Hemoglobin 31.4 pg (27.0-31.0); Mean Corpuscular Volume 99.6 fl (81.0-99.0); Mean Platelet Volume 7.3 fL (7.4-10.4); Platelet Count 206 thou/uL (130-400); RBC Distribution Width 14.4 % (11.5-14.5); White Blood Cell (WBC) Count 8.8 thou/uL (4.8-10.8)
[2017-07-11] MEDS ORDERED: Ondansetron ODT 4 MG TAB ONE (10:58)
[2017-07-11 11:13] LABS: Calcium 9.9 mg/dL (7.8-10.44); Chloride 110 mmol/L (98-107); Potassium 4.4 mmol/L (3.5-5.1); Sodium 142 mmol/L (136-145)
[2017-07-11] MEDS ORDERED: Docusate 100 MG CAP PO SCH (11:15)
[2017-07-11 11:49] LABS: Glucose 80 mg/dL (83-110)
[2017-07-11 11:51] LABS: Anion Gap 11 mmol/L (10-20); Carbon Dioxide 24 mmol/L (23-31)
[2017-07-11 11:53] LABS: BUN (Urea Nitrogen) 13 mg/dL (9.8-20.1); Calc. Creatinine Clearance 0 mL/min (70-130); Estimated GFR-MDRD 55
--- NOTE | 2017-07-11 12:03 | RAD ---
ABDOMEN 2 VIEWS: Date: 07/11/17 HISTORY: 76-year-old female with history of coronary artery disease, hypothyroidism, and hemorrhoids with rect al pain and constipation. FINDINGS: Postop midline sternotomy with a thoracic descending aortic endostent with some marked ectasia at the level of the thoracic abdominal aortic junction. There is some scattered gas and fecal material in t he colon. No evidence of large or small bowel obstruction or free air. No overt calculus. IMPRESSION: Unremarkable abdomen 2 views. Thoracic descending aortic endostent with marked tortuosity at the thor acoabdominal aortic junction. No other acute process. POS: [facility]
== END 2017-07-11 12:41 | disposition home or self-care (01) ==
LOC: ERS 09:43
DX: K64.9 Unspecified hemorrhoids (principal); K59.00 Constipation, unspecified; I10 Essential (primary) hypertension; I48.91 Unspecified atrial fibrillation; E03.9 Hypothyroidism, unspecified; Z87.891 Personal history of nicotine dependence; Z79.899 Other long term (current) drug therapy; Z79.01 Long term (current) use of anticoagulants
CPT/HCPCS: 36415; 74019; 80048; 85025; Q0162